=== PATIENT | male | born 1960 | race Caucasian/White ===

== ENCOUNTER → 2018-03-03 09:50 | Outpatient (CLI) | payer OTHER, SELFPAY ==
--- NOTE | 2018-03-03 09:52 | FL_ITS ---
FL upper GI w air Ordering Physician: Horace Cheng MD Patient Age: 58 years: Male HISTORY: ITS.REASON: dysphagia dysphagia. Food hangs up at lower C-spine level sternal notch/upper chest TECHNIQUE: Air-contrast UGI 2 minutes 10 seconds fluoroscopy time Fluoroscopy performed by Dr. Staples COMPARISON :None FINDINGS Cervical esophagus appears satisfactory. There is a normal cricopharyngeus muscle but no extrinsic compression. No irregularities. Hypopharynx appears satisfactory. No web. No aberrant vascular indentation. . The vallecula and piriform sinuses appear symmetric. There is normal distensibility of the cervical esophagus. Thoracic esophagus appears satisfactory. There were some transient feline contractions which is a normal variant. Also observed some mild to and fro motion of barium at the distal esophagus reflecting slightly dysfunctiona/less functional l episodes of peristalsis There is mild GE reflux with a small barely evident hiatal hernia seen with Valsalva maneuver Uppermost abdomen shows the stomach to be normal. Pylorus unremarkable. There are some mild irritability of the duodenal bulb but overall is within normal limits. Upper normal fullness at the distal duodenum could reflect some mild peptic rotation but unimpressive. No ulcer which. No significant filling defect. The duodenal loop and proximal jejunum otherwise unremarkable and normal.. Prompt gastric emptying IMPRESSION: 1 Cervical esophagus appears normal. 2 Thoracic esophagus intact with minor observations: .... Only trace GE reflux observed.. ...Mild to & fro motion of barium lingering distal esophagus suggesting suggesting perhaps slight dysfunctional peristalsis here.. ... Also Very minor subtle small slightly hiatal hernia noted with Valsalva maneuver . 3 Stomach and pylorus unremarkable. . 4 Duodenum appears overall satisfactory noting slightly generous Jim's glands and mucosal folds at apex are due to fall. Could reflect mild peptic irritation but unimpressive
== END ==
PROVIDERS: PCP Family Medicine; Visit Provider Surgery
DX: R13.10 Dysphagia, unspecified (principal)
CPT/HCPCS: 74247

== ENCOUNTER → 2022-03-26 16:57 | Outpatient (CLI) | payer OTHER, SELFPAY | PROVIDERS: PCP Physician Assistant; Visit Provider Physician Assistant | DX: U07.1 COVID-19 (principal) | CPT/HCPCS: C9803; U0003; U0005 ==

== ENCOUNTER 2025-01-31 14:55 | Outpatient (CLI) | payer OTHER, SELFPAY ==
--- NOTE | 2025-01-31 | CA_ITS ---
APPROVED REPORT EXAM: Comprehensive 2D, Doppler, and color-flow Echocardiogram [place] Tender: SCOT [place], RVS Ht: 6 ft 1 in Wt: 200lbs BSA: 2.15 BP: 151/88 mmHg Indications: Murmur, Family Hx- Aortic stenosis, HTN 2D Dimensions Left Atrium 3.48 cm LA Volume 50.70 mL LA Volume Index [id number] mL/m2 (M/F) 16-34 M-Mode Dimensions RVDd 2.04 cm (0.9-2.6) LA Diam 3.45 cm (1.9-4.0) LVDd 5.45 cm (3.5-5.7) LVDs 3.69 cm (3.5-5.7) IVSd 1.24 cm (0.6-1.1) PWd 1.28 cm (0.6-1.1) EF (Teich) 60.00% EPSs 0.55 cm FS 32.30% EDV (Teich) 144.40 mL TAPSE 1.98 (<1.7) ESV (Teich) 57.80 mL LV Diastology E Decel Time 150 (160-240 msec) E/A Ratio 0.89 MED A' 13.40 cm/s LAT A' 9.10 cm/s Aortic Valve BETITO Index 0.48 cm2/m2 AoV Peak Kiet. 264.0 (50-130 cm/s) AO Peak GR. 27.80 mmHg AO Mean GR. 16.80 (<5 mmHg) AO VTI 53.5 (18-25 cm) BETITO (VTI) 1.06 (2.5-4.5 cm2) Mitral Valve MV A Velocity 98.0 (40-130 cm/s) E/A Ratio 0.89 Tricuspid Valve TR P. Velocity 223.00 cm/s RAP Estimate 10.00 mmHg RVSP 29.90 mmHg Left Ventricle The left ventricle is normal size. The left ventricular systolic function is normal. The left ventricular ejection fraction is within the normal range. There is increased LV wall thickness. There is normal LV segmental wall motion. Transmitral Doppler flow pattern suggests impaired LV relaxation. LVEF is 55%. Right Ventricle The right ventricle is mildly dilated. The right ventricular systolic function is normal. Atria The left atrium size is normal. The right atrium size is normal. There is no Doppler evidence of interatrial shunt. Aortic Valve The aortic valve is mildly thickened. Moderate aortic stenosis is present. BETITO by continuity equation is 1.2 cm2. Peak velocity is 2.8 m/s. Mean AV gradient is 18 mmHg. Max AV gradient 28 mmHg. Trace aortic regurgitation Mitral Valve The mitral valve leaflets are mildly thickened. No evidence of mitral valve stenosis. Mild mitral regurgitation. Tricuspid Valve Tricuspid valve is grossly normal in structure and function. Mild tricuspid regurgitation. RVSP 20-25 mmHg. Pulmonic Valve The pulmonary valve is normal in structure. Trace pulmonic regurgitation. Great Vessels The aortic root is normal in size. IVC is normal in size and collapses >50% with inspiration. Pericardium There is no pericardial effusion. Other Information Study Quality: Fair Conclusion Normal biventricular systolic function. Mild RV dilation. Moderate (BETITO by continuity equation is 1.2 cm2. Peak velocity is 2.8 m/s. Mean AV gradient is 18 mmHg. Max AV gradient 28 mmHg). Mild MR, mild TR. Electronically signed by : Meche Hendricks MD 02/07/2025 20:59:54
== END 2025-01-31 23:59 | disposition home or self-care (01) ==
LOC: RT 14:56
PROVIDERS: PCP Physician Assistant; Visit Provider Family Medicine
DX: I51.7 Cardiomegaly (principal); I35.0 Nonrheumatic aortic (valve) stenosis; I34.0 Nonrheumatic mitral (valve) insufficiency; I36.1 Nonrheumatic tricuspid (valve) insufficiency; R01.1 Cardiac murmur, unspecified
CPT/HCPCS: 93306